=== PATIENT | female | born 1940 | race Caucasian/White ===

== ENCOUNTER 2020-08-18 14:21 | Emergency (ER) | payer OTHER, SELFPAY ==
[2020-08-18 14:24] VITALS: BP 163/94; PULSE 70; RESP 18; TEMP 36.8; O2SAT 96; BMI 24.5
--- NOTE | 2020-08-18 14:37 | EKG12_ITS ---
Test Reason : WEAKNESS Blood Pressure : / mmHG Vent. Rate : 073 BPM Atrial Rate : 073 BPM P-R Int : 162 ms QRS Dur : 078 ms QT Int : 392 ms P-R-T Axes : 015 103 014 degrees QTc Int : 431 ms Sinus rhythm with Premature supraventricular complexes Low voltage QRS Septal HI, age undetermined Nonspecific T wave abnormality Abnormal ECG Confirmed by YOANA AGEE, PRITI ([id number]), video news editor DENISE FAIRBANKS ([id number]) on 08/22/2020 12:47:08 PM Referred By: JOSHUA Confirmed By:PRITI LEES MD
--- NOTE | 2020-08-18 14:45 | ED.DCSUM_ITS ---
- ER Visit Summary Date of Service: 08/18/20 Chief Complaint: [Weakness] History of Present Illness: The patient is a 79 F presents to the emergency department complaint of weakness that started 4 days ago. Patient states that she has had decreased appetite and diarrhea daily. Patient states her stools be en watery but only having about 1 a day. She denies any vomiting. She denies any abdominal pain. She denies recent antibiotic usage. She denies fever or cough. She denies sore throat or body aches. She denies headache. Patient denies recent travel. She denies any blood in her stool or black tarry stool. Patient has no medical history. She denies sick contacts. She denies any exposures to anybody with COVID-19. [] Physical Examination: [HEENT-PERRLA, EOMI. Cranial nerves II through XII grossly intact. TMs clear. Mucous membranes moist. No adenopathy. Cardiovascular-regular rate and rhythm without murmur or ectopy Lungs-clear to auscultation, chest wall stable without crepitus or subcu emphysema Abdomen-normoactive bowel sounds, soft, nontender, no rebound or rigidity, no peritoneal signs. Extremities-intact ?4, normal range of motion, normal pulses, atraumatic] Test Results: [CBC with differential showed organ of 4.3, hemoglobin 14.8, hematocrit 44, platelets 146. Chemistries unremarkable. Urinalysis normal. Troponin less than 0.015. EKG obtained showed a sinus rhythm with a ventricular rate of 73 bpm with some nonspecific changes. Patient had a COVID-19 test that was positive. Chest x-ray obtained showed right lower lobe infiltrate] Emergency Department Course and Treatment: [Patient was started on Levaquin 750 mg p.o. At this point her vital signs are normal. She looks well. She is not having any respiratory distress. I feel she can be discharged to home for treatment] Treatment Plan: [We will be started on Levaquin 750 mg p.o. Patient to self quarantine for 14 days. Patient advised to return if increasing shortness of breath or condition should worsen anyway.] Disposition: [Discharged home in stable condition] Impression: [COVID-19 infection Viral syndrome Viral pneumonia] This note was generated with [employer] software. It may contain incorrect words, spelling, and punctuation that were not noted in review of the chart prior to signing
--- NOTE | 2020-08-18 14:49 | NURSING ---
NO OLD EKGS
[2020-08-18] MEDS: 0.9% Normal Saline 1,000 ML 150 ML IV (14:55)
[2020-08-18 15:08] LABS: Absolute Lymphocyte Count 0.65 X10^3/uL (0.83-4.51); Absolute Neutrophil Count 3.2 X10^3/uL (2.0-7.7); Basophil# 0.01 X10^3/uL; Basophil% 0.2 % (0-1); Differential Indicated SCAN CRITERIA MET; Hematocrit 44.4 % (37-47); Hemoglobin 14.8 g/dL (12.0-15.0); Lymphocyte # 0.65 X10^3/ul (4.0); Mean Corp Hgb Conc 33.3 g/dL (32-36); Mean Corpuscular Hgb 31.4 pg (27.0-32.0); Mean Corpuscular Volume 94.1 fL (81-99); Mean Platelet Vol. 9.2 fl (6.2-12.0); Monocyte# 0.46 X10^3/uL; Monocyte% 10.6 % (0-10); NRBC Flagged by Analyzer 0 % (0-5); POSITIVE MORPHOLOGY YES; Platelet Count 146 K/mm3 (150-450); RBC Distribution Width CV 12.8 % (11.6-14.6); RBC Distribution Width SD 44.2 fl (35.1-43.9); Red Blood Count 4.72 M/mm3 (4.2-5.4); White Blood Count 4.3 K/mm3 (4.4-11.0)
[2020-08-18 15:30] LABS: ALB/GLOB Ratio 0.8 RATIO (0.9-2.4); AST(SGOT) 37 U/L (15-37); Alanine Aminotransfer ALT/SGPT 26 U/L (13-56); Albumin, Serum 3.1 g/dL (3.2-5.0); Alkaline Phosphatase 54 U/L (45-117); Anion Gap 7 (5-15); BUN 15 mg/dL (7-18); BUN/Creat Ratio 15.3 RATIO (10-20); Calcium,Total 8.9 mg/dL (8.5-10.1); Chloride 98 mmol/L (98-107); Creatinine, Serum 0.98 mg/dL (0.55-1.02); EST Glomerular Filtration Rate 58 mL/min (>60); Est Glom Filt Rate - Afr Amer 71 mL/min (>60); Estimated Creatinine Clearance 39.77 ml/min; Globulin 4.1 g/dL (2.2-4.2); Glucose 97 mg/dL (74-106); Potassium 3.3 mmol/L (3.5-5.1); Protein, Total 7.2 g/dL (6.4-8.2); Sodium Level 135 mmol/L (136-145)
[2020-08-18 15:34] LABS: Differential Comment SCANNED
[2020-08-18 15:38] LABS: Lactic Acid 1.1 mmol/L (0.4-1.9)
--- NOTE | 2020-08-18 16:03 | RAD_ITS ---
STUDY: X-RAY CHEST REASON FOR EXAM: Female, 79 years old. Weakness and diarrhea since Saturday. TECHNIQUE: Single AP portable view of the chest. COMPARISON: None. FINDINGS: The lungs are well expanded. There is density in the medial right lung base suggesting infiltrate. There is no demonstrated pleural abnormality. Borderline cardiomegaly. Normal mediastinum and andrea. Normal visualized pulmonary arteries. Normal visualized aortic arch and descending thoracic aorta. Mild degenerative changes of the thoracic spine. Normal visualized ribs, clavicles, and shoulders. There is no demonstrated abnormality of the visualized soft tissue structures of the upper abdomen. RAD/Chest 1 View (Portable) IMPRESSION: Right basilar infiltrate. Electronically Signed: Juan J López DO at 16:32 EDT Tel [phone], Service support ,
[2020-08-18 16:44] LABS: Mucous, Urine 0 SEEN /hpf (<or=2+); Red Blood Cells-Urine 0 SEEN /hpf (0-5); Squamous Epithelial Cells - UA 0 SEEN /hpf (5-10); White Blood Cells 0 SEEN /hpf (0-5)
[2020-08-18 16:48] LABS: Color, Urine Yellow (Yellow); Glucose, Dipstick Normal (Normal); Ketone-Dipstick 15 mg/dl (Negative); Leukocyte Esterase-Dipstick Negative /ul (Negative); Nitrite-Dipstick Negative (Negative); Occult Blood-Urine Negative /ul (Negative); Protein-Dipstick 15 mg/dl (Negative); Urine Bilirubin Dipstick Negative (Negative); Urine Clarity Clear (Clear); Urine Urobilinogen Normal (Normal)
[2020-08-18 17:11] LABS: Bacteria RARE /hpf (None Seen)
--- NOTE | 2020-08-18 17:40 | ED.DEP ---
ED Disposition - Plan for ED Patient: Instructions: Pneumonia Prescriptions: Levofloxacin [Levaquin] 750 mg PO DAILY #7 tab Prescription Printed Referrals: Brian Junior DO [Primary Care Provider] - 5-7 Days
[2020-08-18] MEDS: levoFLOXacin 750 MG Tablet PO (18:18)
[2020-08-18 18:23] VITALS: RESP 18
== END 2020-08-18 20:11 | disposition home or self-care (01) ==
PROVIDERS: Emergency Provider Emergency Medicine; PCP Family Medicine
DX: U07.1 COVID-19 (principal); J12.89 Other viral pneumonia
CPT/HCPCS: 71045; 80053; 81001; 83605; 84484; 85025; 87635; 93005; 96360; 96361; 99285; U0002

== ENCOUNTER → 2025-06-30 | Outpatient (CLI) | payer SELFPAY ==
--- NOTE | 2025-06-30 08:21 | BD_ITS ---
PROCEDURE: DEXA BONE DENSITY STUDY 06/30/2025 REASON FOR EXAM: OSTEOPOROSIS F, age 84 y/o . Postmenopausal. TECHNIQUE: Procedure Code: BDDBD Modality: DX Procedure: DEXA BONE DENSITY STUDY COMPARISON: None FINDINGS: BMD and T-SCORES Lumbar spine: 0.810 g/cm2, T-score -2.2 Levels: L1 through L4 Left femoral neck: 0.454 g/cm2, T-score -3.6 Femoral neck comparison data not recommended for monitoring change. Left total hip: 0.582 g/cm2, T-score -3.0 Right femoral neck: 0.474 g/cm2, T-score -3.4 Femoral neck comparison data not recommended for monitoring change. Right total hip: 0.544 g/cm2, T-score -3.3 The World Health Organization has defined the following categories based on bone density: Normal bone density: T-score equal to or greater than -1.0 Osteopenia: T-score between -1.0 and -2.5 Osteoporosis: T-score equal to or less than -2.5 FRAX (or Comparable) Fracture Risk Assessment: 10 Year Probability of Fracture: Major Osteoporotic Fracture: 27% Hip Fracture: 13% (Note: FRAX is not to be reported in setting of normal range bone density, osteoporosis on DEXA, known history of osteoporosis, prior osteoporotic hip or vertebral fracture, or for any patient undergoing pharmacological treatment for bone loss.) The National Osteoporosis Foundation (NOF) recommends pharmacological treatment for patients with a FRAX 10-year risk of 3% or higher for a hip fracture, or 20% or higher for a major osteoporotic fracture, to prevent osteoporosis and reduce fracture risk. The patient does meet the pharmacological treatment recommendations for prevention of osteoporosis. BD/Dexa Bone Density Study IMPRESSION: OSTEOPOROSIS. Recommend follow-up as clinically warranted. Reading Location: [place] [id number]
== END | disposition home or self-care (01) ==
LOC: OPBD 08:15
PROVIDERS: PCP Nurse Practitioner Family; Referring Provider Student in an Organized Health Care Education/Training Program; Visit Provider Student in an Organized Health Care Education/Training Program
DX: M81.0 Age-related osteoporosis without current pathological fracture (principal)
CPT/HCPCS: 77080